=== PATIENT | male | born 1985 | race African-American/Black ===

== ENCOUNTER 2017-12-24 21:56 | Emergency (ER) | payer SELFPAY ==
[~2017-12-24] VITALS: Ht 147.3 cm; Wt 100.9 kg
[~2017-12-24 21:56] MED LIST: IBUP800T23 PO; PERC5TAB12 PO; Z.0.NO CURRENT MEDS
[2017-12-24 22:19] VITALS: BP 154/89; PULSE 69; RESP 20; TEMP 98.2
[2017-12-24] MEDS ORDERED: PRED50 PO (23:07)
--- NOTE | 2017-12-24 23:07 | PD ---
HPI Chief Complaint: Skin Problem Time Seen by Provider: 22:43 Travel History International Travel<30 days: No Contact w/Intl Traveler<30days: No Traveled to known affect area: No History of Present Illness HPI 32-year-old male here for evaluation of pruritic rash to right shoulder. The patient has noticed a rash for the last week. He reports that earlier today they were large raised lesions over his shoulder. Upon my assessment the rash seems to have resolved, however the patient reports feeling pruritus. He has not taken anything for this rash. He was recently released from [facility] on . No fevers or chills. He smokes marijuana. Denies any other illicit drugs. PFSH Past Medical History Diminished Hearing: No Hypertension: Yes Tetanus Vaccination: Unknown Influenza Vaccination: No Social History Alcohol Use: Yes (1-2/MO) Tobacco Use: Yes (ONE PACK PER DAYX 2-3 YRS) Substance Use: No Allergies-Medications (Allergen,Severity, Reaction): Coded Allergies: No Known Allergies (Verified Adverse Reaction, Unknown, 12/24/17) Reported Meds & Prescriptions Reported Meds & Active Scripts Active No Active Prescriptions or Reported Medications Review of Systems Except as stated in HPI: all other systems reviewed are Neg Physical Exam Narrative GENERAL: Well-developed, well-nourished, comfortable, no apparent distress. SKIN: Focused skin assessment warm/dry. Right shoulder without obvious rash. There are no blistering lesions. No petechiae. No warmth or erythema. Webspace between fingers appear normal without tracking. HEAD: Atraumatic. Normocephalic. EYES: Pupils equal and round. No scleral icterus. No injection or drainage. ENT: No nasal bleeding or discharge. Mucous membranes pink and moist. No oral mucosal lesions. NECK: Trachea midline. No JVD. No nuchal rigidity. CARDIOVASCULAR: Regular rate and rhythm. RESPIRATORY: No accessory muscle use. Clear to auscultation. Breath sounds equal bilaterally. GASTROINTESTINAL: Abdomen soft, non-tender, nondistended. MUSCULOSKELETAL: No obvious deformities. No clubbing. No cyanosis. No edema. NEUROLOGICAL: Awake and alert. No obvious cranial nerve deficits. Motor grossly within normal limits. Normal speech. PSYCHIATRIC: Appropriate mood and affect; insight and judgment normal. Data Data Last Documented VS Vital Signs Date Time Temp Pulse Resp B/P (MAP) Pulse Ox O2 Delivery O2 Flow Rate FiO2 12/24/17 22:19 98.2 69 20 154/89 (110) Orders Orders Dexamethasone Inj (Decadron Inj) (12/24/17 23:15) Diphenhydramine Inj (Benadryl Inj) (12/24/17 23:15) [facility] Medical Decision Making Medical Screen Exam Complete: Yes Emergency Medical Condition: Yes Differential Diagnosis Dermatitis, urticaria, allergic reaction Narrative Course This is a 32-year-old male who is here for evaluation of pruritic rash right shoulder. On exam here in the emergency department there is no obvious rash. The patient and the patient's significant other reports that there were raised lesions earlier today. It sounds like they're describing urticaria. He does not have any clinical symptoms to suggest scabies. There are no intraoral lesions. The shoulder is without warmth or erythema. I do not suspect a septic arthritis. Patient likely has a dermatitis of some sort. Plan is to start him on prednisone and Benadryl and have him follow-up with a primary care physician this week. He was informed on when to return to the emergency department. He verbalizes understanding and agreement with plan. Diagnosis Primary Impression: Dermatitis Referrals: [facility] 3 days Primary Care Physician 3 days Additional Instructions: Follow-up with a primary care physician this week. Return to the emergency department for worsening symptoms or any other concerns. Scripts Prednisone (Prednisone) 50 Mg Tab 50 MG PO DAILY for 5 Days, #5 TAB 0 Refills Prov: Wayne Jonas MD 12/24/17 Disposition: 01 DISCHARGE HOME Condition: Stable Wayne Jonas MD Dec 24, 2017 23:07
[2017-12-24] MEDS ORDERED: DEXAMETHASONE SOD PHOS 20 MG/5 ML VIAL IM ONE (23:15)
[2017-12-24] MEDS ORDERED: diphenhydrAMINE HCL 50 MG/ML VIAL IM ONE (23:15)
== END 2017-12-24 23:19 | disposition home or self-care (01) ==
LOC: PHEFT 21:56 → PHED 23:19
DX: L30.9 Dermatitis, unspecified (principal); I10 Essential (primary) hypertension; F17.210 Nicotine dependence, cigarettes, uncomplicated
CPT/HCPCS: 96372; 99284; J1100; J1200